=== PATIENT | female | born 1965 | race Caucasian/White ===

== ENCOUNTER → 2017-06-08 | Outpatient (CLI) | payer OTHER ==
[~2017-06-08] MED LIST: ASPI325EC; CYCL10 PO; DICL75ER; HYDACE5; HYDACE5 PO; HYDMOR2 PO; IBUP200 PO; IBUP800; IBUP800 PO; META800; ONDA4 PO; ONDA4ODT MM; OXYACE5T; OXYACE5T PO; PROACE100; RXHYDACE PO; RXIBUP800 PO; VALD10
== END | disposition home or self-care (01) ==
LOC: LAB 12:39
DX: N39.0 Urinary tract infection, site not specified (principal)
CPT/HCPCS: 87077; 87086; 87186

== ENCOUNTER → 2024-06-07 | Outpatient (CLI) | payer OTHER ==
[~2024-06-07] MED LIST changes: +ACET500 PO
[2024-06-16 12:47] LABS: HPV HIGH RISK BY TMA Not Detected; HPV SOURCE Cervical
== END | disposition home or self-care (01) ==
LOC: LAB 18:20 → LAB SHORT 18:20
PROVIDERS: Student in an Organized Health Care Education/Training Program
DX: Z12.4 Encounter for screening for malignant neoplasm of cervix (principal)
CPT/HCPCS: 87624; G0123

== ENCOUNTER → 2024-07-13 | Outpatient (CLI) | payer OTHER | END | disposition home or self-care (01) | LOC: LAB SHORT 10:18 → LAB 10:18 | DX: R10.9 Unspecified abdominal pain (principal) | CPT/HCPCS: 87077; 87086; 87186 ==

== ENCOUNTER 2024-08-15 10:46 | Day surgery (SDC) | payer OTHER ==
[~2024-08-15] VITALS: Ht 167.6 cm; Wt 83.6 kg
[~2024-08-15 10:46] MED LIST changes: +CeFAZolin Sodium 2,000 MG VIAL ONE; +Tranexamic Acid 100 ML IV ONE
[2024-08-15] MEDS ORDERED: Midazolam HCl 1MG / ML 2ML Vial ONE ×2 (10:54→11:32)
[2024-08-15] MEDS ORDERED: FentaNYL Citrate 50 MCG/ML 2 ML Injection ONE (10:55)
[2024-08-15] MEDS ORDERED: propofoL 20 ML IV ONE (10:55)
[2024-08-15] MEDS ORDERED: Lactated Ringer's 1,000 ML IV ONE ×2 (11:14→14:00)
[2024-08-15] MEDS ORDERED: EPINEPhrine HCl 1 MG/ML 1ML Amp ONE ×2 (11:25→11:31)
[2024-08-15] MEDS ORDERED: Bupivacaine 0.5% HCl 5 MG/ML 30MLVIAL ONE (11:29)
--- NOTE | 2024-08-15 11:46 | NUR ---
08/15/24 1146 Isabelle Montes "ELLEN" FAWN KITCHEN AT BEDSIDE FOR NERVE BLOCK. PT GIVEN VERSED AND PLACED ON MONITOR FOR SATS. PROCEDURE START 1137, END 1140. PT TOLERATED PROCEDURE WELL.
[2024-08-15] MEDS ORDERED: Ketorolac Tromethamine 30mg Vial ONE (12:03)
[2024-08-15] MEDS ORDERED: Ondansetron HCl 2 MG / ML 2ML Vial ONE (12:03)
[2024-08-15] MEDS ORDERED: Dexamethasone Sod Phos 10 MG/ML 1ML VIAL ONE (12:03)
[2024-08-15] MEDS ORDERED: Phenylephrine HCl 100 MCG/ML-NS 10MLSYR (1MG/10ML) ONE (12:05)
--- NOTE | 2024-08-15 12:31 | NUR ---
08/15/24 1231 Chiquis Colby 1 GM STARTED IN OR BY ELLEN AUGUSTINE AT 1210.
[2024-08-15] MEDS ORDERED: HYDROmorphone HCl/Pf 1MG SYR ONE (12:41)
--- NOTE | 2024-08-15 14:57 | NUR ---
08/15/24 9326 Catalina Perez PT ARRIVES TO PACU ON 15L/NRB, IMMEDIATELY DECREASED TO 10L. PT ROUSES EASILY TO VOICE, DENIES PAIN & NAUSEA. PT HYPERTENSIVE, BUT IS AT PRE-OP BASELINE. OTHER VSS. DRESSING C/D/I. NO VISIBLE SIGNS OF DISTRESS NOTED. Y
--- NOTE | 2024-08-15 15:07 | NUR ---
08/15/24 1507 Catalina Perez PT TRANSFERS TO SDU DROWSY, BUT ORIENTED. PT CONTINUES TO DENY PAIN/NAUSEA. PT'S VS AT PRE-OP BASELINE. NO VISIBLE SIGNS OF DISTRESS NOTED.
[2024-08-15 15:20] VITALS: BP 164/71
== END 2024-08-15 15:55 | disposition home or self-care (01) ==
LOC: ORSCSDS 10:46
PROVIDERS: Orthopaedic Surgery Sports Medicine
PROC: 0MRN4JZ Replacement of Right Knee Bursa and Ligament with Synthetic Substitute, Percutaneous Endoscopic Approach (ICD-10-PCS; principal; 2024-08-15 12:00)
DX: S83.511A Sprain of anterior cruciate ligament of right knee, initial encounter (principal); S83.281A Other tear of lateral meniscus, current injury, right knee, initial encounter; S83.241A Other tear of medial meniscus, current injury, right knee, initial encounter; M25.361 Other instability, right knee; Y93.67 Activity, basketball; Z96.652 Presence of left artificial knee joint
CPT/HCPCS: C1713; C1762; C1889; J0171; J0690; J1100; J1171; J1885; J2250; J2371; J2405; J2704; J3010; J7120